=== PATIENT | female | born 1985 | race Caucasian/White ===

== ENCOUNTER → 2020-06-28 | Outpatient (CLI) | payer OTHER ==
--- NOTE | 2020-06-28 14:19 | REP ---
INDICATION: N63.20 LEFT BREAST LUMP. COMPARISON: None TECHNIQUE: Real-time sonographic evaluation of left breast performed. FINDINGS: At the site of the reported palpable abnormality in left breast at 11 o'clock no cystic or solid nodule is seen. IMPRESSION: BIRADS/ACR category 1 negative left breast ultrasound. No cystic or solid nodule at the site of the reported palpable abnormality left breast. RECOMMENDATION: No mammogram was performed as the patient just recently terminated breast feeding, and for adequate mammographic evaluation she should be 3 months from the termination of breast feeding. Recommend clinical correlation and follow-up of the palpable abnormality. If the palpable abnormality persists then I would recommend a 6 month follow-up mammogram and ultrasound left breast. <Electronically signed by Naveen Quiñones > 06/28/20 [id number]
== END ==
LOC: M WHC 12:57
PROVIDERS: ATTEND Advanced Practice Midwife
DX: R92.8 Other abnormal and inconclusive findings on diagnostic imaging of breast (principal)

== ENCOUNTER → 2020-11-19 | Outpatient (REF) | payer OTHER ==
[~2020-11-19] MED LIST: MULTTAB20 PO; SERT50TA29 PO
== END ==
LOC: M PLALAB 10:45
PROVIDERS: ATTEND Advanced Practice Midwife
DX: O26.851 Spotting complicating pregnancy, first trimester (principal)
CPT/HCPCS: 36415; 84702; G0463

== ENCOUNTER 2020-11-20 14:11 | Observation (INO) | payer OTHER ==
[~2020-11-20] VITALS: Ht 162.6 cm; Wt 99.8 kg
[2020-11-20] MEDS ORDERED: MULTTAB20 PO (14:18)
[2020-11-20] MEDS ORDERED: SERT50TA29 PO (14:18)
[2020-11-20] MEDS ORDERED: NS 1,000 ML IV ONE ×2 (14:50→16:15)
[2020-11-20 15:15] LABS: BASO # 0.1 10^3/uL (0.0-0.2); BASO % 0.4 % (0.0-1.0); EOS # 0.3 10^3/uL (0.0-0.5); EOS % 2.5 % (0.0-3.0); HEMATOCRIT 39.1 % (36.0-47.0); HEMOGLOBIN 13.1 g/dl (12.0-15.5); LYMPH # 3.5 10^3/uL (1.5-5.0); MEAN CORPUSCULAR HEMOGLOBIN 29.2 pg (27.0-33.0); MEAN CORPUSCULAR HGB CONC 33.5 g/dl (32.0-36.5); MEAN CORPUSCULAR VOLUME 87.1 fl (80.0-96.0); MONO # 0.8 10^3/uL (0.0-0.8); MONO % 5.8 % (2.0-8.0); NEUTROPHILS # 8.7 10^3/uL (1.5-8.5); PLATELET COUNT, AUTOMATED 385 10^3/uL (150-450); RED BLOOD COUNT 4.49 10^6/uL (4.00-5.40); WHITE BLOOD COUNT 13.4 10^3/uL (4.0-10.0)
[2020-11-20 15:52] LABS: OSMOLALITY SERUM 282 MOSM/KG (275-295)
[2020-11-20 15:54] LABS: BLOOD UREA NITROGEN 12 MG/DL (7-18); CALCIUM LEVEL 8.9 MG/DL (8.5-10.1); CARBON DIOXIDE LEVEL 23 MEQ/L (21-32); CHLORIDE LEVEL 107 MEQ/L (98-107); CREATININE FOR GFR 0.71 MG/DL (0.55-1.30); GLOMERULAR FILTRATION RATE > 60.0 (>60); GLUCOSE, FASTING 120 MG/DL (70-100); HCG, SERUM QUANTITATIVE 2366 MIU/ML; POTASSIUM SERUM 3.6 MEQ/L (3.5-5.1); SODIUM LEVEL 139 MEQ/L (136-145)
[2020-11-20 16:25] LABS: ACETAMINOPHEN LEVEL < 2.0 UG/ML (10.0-30.0); ALBUMIN 3.4 GM/DL (3.2-5.2); ALT/SGPT 21 U/L (12-78); BILIRUBIN,DIRECT 0.1 MG/DL (0.0-0.2); BILIRUBIN,TOTAL 0.5 MG/DL (0.2-1.0); ETHYL ALCOHOL (ETHANOL) < 0.003 % (0.000-0.010); SALICYLATE LEVEL < 1.7 MG/DL (5.0-30.0); TOTAL PROTEIN 6.4 GM/DL (6.4-8.2)
--- NOTE | 2020-11-20 17:15 | REP ---
INDICATION: miscarriage complete. COMPARISON: None. TECHNIQUE: Transabdominal and transvaginal scanning are included. FINDINGS: Uterus is mildly prominent in size but empty. Its dimensions are 9.6 x 4.9 x 6.3 cm. A 1.8 cm endometrium is seen. No evidence of intrauterine gestational sac. No free fluid is noted in the cul-de-sac. Normal ovaries are observed bilaterally. Right ovarian dimensions are 3.0 x 1.4 x 2.2 cm. The left ovary measures 2.7 x 1.9 x 1.8 cm. There is a small quantity of endocervical fluid. IMPRESSION: Mildly enlarged empty uterus. There is a small quantity of endocervical fluid. No other evidence of products of conception. Normal ovaries bilaterally. No free fluid or adnexal mass seen. <Electronically signed by Luis Singh > 11/20/20 [id number]
[2020-11-20 18:24] LABS: AMPHETAMINES LEVEL URINE NEGATIVE (NEGATIVE); BARBITURATES URINE NEGATIVE (NEGATIVE); BENZODIAZEPINES URINE NEGATIVE (NEGATIVE); CANNABINOIDS URINE NEGATIVE (NEGATIVE); COCAINE METABOLITE URINE NEGATIVE (NEGATIVE); METHADONE URINE NEGATIVE (NEGATIVE); OPIATES URINE NEGATIVE (NEGATIVE); PHENCYCLIDINE URINE NEGATIVE (NEGATIVE)
[2020-11-20 18:39] LABS: HEMATOCRIT 33.5 % (36.0-47.0); HEMOGLOBIN 11.4 g/dl (12.0-15.5); MEAN CORPUSCULAR HEMOGLOBIN 30.5 pg (27.0-33.0); MEAN CORPUSCULAR VOLUME 89.6 fl (80.0-96.0); RED BLOOD COUNT 3.74 10^6/uL (4.00-5.40); WHITE BLOOD COUNT 10.6 10^3/uL (4.0-10.0)
[2020-11-20 18:49] LABS: PLATELET COUNT, AUTOMATED 258 10^3/uL (150-450)
[2020-11-20] MEDS ORDERED: METHYLERGONOVINE MALEATE 0.2 MG/ML VIAL (J2210) IM STA (19:05)
[2020-11-20] MEDS ORDERED: NS 500 ML IV ONE (19:25)
--- NOTE | 2020-11-20 20:24 | ECGEPIP ---
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
[2020-11-20 20:40] VITALS: BP 131/69
[2020-11-20 20:55] VITALS: BP 113/64
[2020-11-20 21:45] VITALS: BP 111/63
[2020-11-20 22:30] VITALS: BP 106/58
[2020-11-20 23:16] VITALS: BP 107/69
[2020-11-20 23:53] VITALS: BP 107/69
[2020-11-21] VITALS (9 sets, daily range): BP systolic 80–110; BP diastolic 50–67
[2020-11-21] MEDS ORDERED: ACETAMINOPHEN 500 MG TAB PO PRN
[2020-11-21] MEDS: LR 1,000 ML IV SCH ×2 (00:38→09:44)
[2020-11-21] MEDS: METHYLERGONOVINE MALEATE 0.2 MG TAB PO SCH ×5 (00:38→15:47)
[2020-11-21] MEDS ORDERED: LR 500 ML IV ONE (02:05)
[2020-11-21 02:35] LABS: HEMATOCRIT 32.1 % (36.0-47.0); HEMOGLOBIN 10.5 g/dl (12.0-15.5); MEAN CORPUSCULAR HEMOGLOBIN 29.4 pg (27.0-33.0); MEAN CORPUSCULAR HGB CONC 32.7 g/dl (32.0-36.5); MEAN CORPUSCULAR VOLUME 89.9 fl (80.0-96.0); PLATELET COUNT, AUTOMATED 228 10^3/uL (150-450); RED BLOOD COUNT 3.57 10^6/uL (4.00-5.40); WHITE BLOOD COUNT 9.4 10^3/uL (4.0-10.0)
[2020-11-21 11:54] LABS: HEMATOCRIT 28.2 % (36.0-47.0); HEMOGLOBIN 9.3 g/dl (12.0-15.5); MEAN CORPUSCULAR HEMOGLOBIN 29.8 pg (27.0-33.0); MEAN CORPUSCULAR VOLUME 90.4 fl (80.0-96.0); PLATELET COUNT, AUTOMATED 235 10^3/uL (150-450); RED BLOOD COUNT 3.12 10^6/uL (4.00-5.40); WHITE BLOOD COUNT 7.8 10^3/uL (4.0-10.0)
[2020-11-22 15:36] LABS: PROLACTIN 23.8 NG/ML
--- NOTE | 2020-12-12 17:05 | IPNPDOC ---
Text Note Date of Service The patient was seen on 11/20/20. NOTE History and Physical : HPI: This patient is a 35-year-old 6 para 5 who presents to the emergency department process of spontaneous . She reports started bleeding earlier on day of presentation going through a pad approximately every 2 hours. Upon presentation she had a transabdominal ultrasound showing an empty uterus had a moderate amount of blood flow. Upon ambulation patient became symptomatic with orthostatic changes. Decision was made to admit overnight for observation initiate blood transfusion. PMHx: none PSHx: none OB History: 5 term Meds: PNv Allergies: none SH: Denies alcohol tobacco or drug use PE: vss, AF Gen: well appearing, NAD CVS: rrr Lung: CTAB ABD: soft, nttp A/P: 35-year-old 6 para 5 status post spontaneous with symptomatic anemia Plan is to transfuse 2 units packed red blood cells. Once stable, she should follow up in 2 weeks as an outpatient MD MAURY Mitchell KENYA MD. December 12, 2020 17:05
== END 2020-11-21 16:34 | disposition home or self-care (01) ==
LOC: M ED 14:11 → M ED INP 14:12 → ENRESERV 19:59 → M MSPAV 23:17
PROVIDERS: ADMIT Obstetrics & Gynecology; ATTEND Obstetrics & Gynecology
DX: O03.9 Complete or unspecified spontaneous abortion without complication (principal); D62 Acute posthemorrhagic anemia; Z79.899 Other long term (current) drug therapy
CPT/HCPCS: 36415; 36430; 76801; 76817; 80048; 80076; 80143; 80307; 81001; 82077; 83605; 83930; 84146; 84443; 84702; 85025; 85027; 86850; 86900; 86901; 86920; 87086; 87798; 93005; 93041; 93976; 94760; 96360; 96361; 96372; 99285; J2210; P9016

== ENCOUNTER → 2021-03-11 | Outpatient (CLI) | payer OTHER ==
[2021-03-11 15:48] LABS: HEMOGLOBIN 13.2 g/dl (12.0-15.5); MEAN CORPUSCULAR HGB CONC 32.2 g/dl (32.0-36.5); MEAN CORPUSCULAR VOLUME 83.8 fl (80.0-96.0); PLATELET COUNT, AUTOMATED 278 10^3/uL (150-450); RED BLOOD COUNT 4.89 10^6/uL (4.00-5.40); WHITE BLOOD COUNT 8.3 10^3/uL (4.0-10.0)
[2021-03-11 16:56] LABS: HEPATITIS C VIRUS ABY INDEX 0.1 INDEX (<0.8); HIV 1&2 SCREEN CENTAUR NEGATIVE (NEGATIVE)
[2021-03-11 17:12] LABS: GC DNA AMPLIFICATION NEGATIVE (NEGATIVE)
== END ==
LOC: M PLALAB 13:38
PROVIDERS: ATTEND Obstetrics & Gynecology
DX: Z34.91 Encounter for supervision of normal pregnancy, unspecified, first trimester (principal)
CPT/HCPCS: 36415; 85027; 86762; 86780; 86803; 86850; 86900; 86901; 87086; 87340; 87389; 87491; 87591; G0463

== ENCOUNTER → 2021-05-18 | Outpatient (CLI) | payer OTHER ==
--- NOTE | 2021-05-18 09:00 | REP ---
INDICATION: ANATOMY COMPARISON: 11/20/2020 TECHNIQUE: Transabdominal obstetrical ultrasound with color Doppler evaluation. FINDINGS: Examination demonstrates a single live intrauterine in cephalic presentation. motion is identified by technologist. Placenta is noted posterior and grade 0 without evidence for placenta previa or abruption. Amniotic fluid volume is normal. Cervix measures 4.5 cm in length and appears closed.. Selected gestational age: 21 weeks 5 days with JEN 09/23/2021. Gestational age by current measurements 21 weeks 5 days with JEN 09/23/2021. FHR equals 152 beats per minute. BPD: 5.0 cm at 21 weeks 2 days HC: 19.1 cm at 21 weeks 3 days AC: 16.1 cm at 21 weeks 2 days FL: 3.8 cm at 22 weeks 2 days HL: 3.5 cm at 22 weeks 1 day HC/AC: 1.18 Estimated weight 441 grams (45thpercentile). Anatomical assessment demonstrates normal structures including cranium, choroid plexus, cavum, cerebellum/posterior fossa, facial features, lungs, diaphragm, stomach, cord insertion/three-vessel cord, kidneys/bladder, spine, and extremities. IMPRESSION: Single live intrauterine in cephalic presentation demonstrating appropriate estimated weight and growth. Limited evaluation of the heart/ventricular outflow tracts. Remainder of the anatomical assessment is complete and normal. <Electronically signed by Akira Hardy > 05/18/21 [id number]
== END ==
LOC: M WHC 08:01
PROVIDERS: ATTEND Obstetrics & Gynecology
DX: Z34.82 Encounter for supervision of other normal pregnancy, second trimester (principal); Z3A.11 11 weeks gestation of pregnancy

== ENCOUNTER → 2021-06-02 | Outpatient (CLI) | payer OTHER ==
--- NOTE | 2021-06-02 16:37 | REP ---
INDICATION: PREG 23+ WKS F/U ANATOMY. COMPARISON: Obstetrical ultrasound, 05/18/2021 TECHNIQUE: Ultrasound evaluation of the gravid uterus was performed. FINDINGS: 7, Para 5 LMP 12/16/2020 = 24 weeks 0 days, JEN(LMP) = 09/22/2021 Expected GA/1st sono = 23 weeks 6 days, JEN (expected) = 09/23/2021 Today's sono findings = 24 weeks 4 days, JEN (today's sono) = 09/18/2021 Number: 1 Position: Cephalic Heart Rate: 149 BPM Placental Position: Posterior Amniotic Fluid Volume: Normal Cervix Length 4.6 cm. MEASUREMENTS: BPD: 5.9 cm, consistent with 24 weeks 1 day, mean gestational age. HC: 23.0 cm, consistent with 25 weeks 0 days, mean gestational age. AC: 19.5 cm, consistent with 24 weeks 1 day, mean gestational age. FL: 4.2 cm, consistent with 23 weeks 6 days, mean gestational age. Estimated Weight: 670 grams 54 percentile The following structures are visualized on today's exam or were seen on previous exam and are unremarkable: Cranium, cavum, cerebellum, posterior fossa-cisterna magna, choroid plexus, midline falx, lateral ventricles, orbits, face-profile, face-lips/mouth, neck, 4-chamber heart, RVOT, diaphragm, stomach, kidneys, bladder, abdominal wall, cord insertion, umbilical arteries, 3-vessel cord, color Doppler, spine and upper and lower extremities. Note the LVOT was suboptimally visualized. IMPRESSION: 1. Single living intrauterine of 24 weeks 4 days, mean gestational age. The estimated date of delivery is 09/18/2021. 2. There are no anomalies detected. The LVOT was suboptimally visualized. <Electronically signed by Serge Tsai > 06/02/21 [id number]
== END ==
LOC: M RAD 14:36
PROVIDERS: ATTEND Advanced Practice Midwife
DX: Z36.2 Encounter for other antenatal screening follow-up (principal); Z3A.24 24 weeks gestation of pregnancy

== ENCOUNTER → 2021-06-28 | Outpatient (CLI) | payer OTHER ==
[2021-06-28 13:50] LABS: HEMATOCRIT 36.4 % (36.0-47.0); HEMOGLOBIN 12.3 g/dl (12.0-15.5); MEAN CORPUSCULAR HEMOGLOBIN 29.8 pg (27.0-33.0); MEAN CORPUSCULAR HGB CONC 33.8 g/dl (32.0-36.5); MEAN CORPUSCULAR VOLUME 88.1 fl (80.0-96.0); PLATELET COUNT, AUTOMATED 258 10^3/uL (150-450); RED BLOOD COUNT 4.13 10^6/uL (4.00-5.40); WHITE BLOOD COUNT 8.8 10^3/uL (4.0-10.0)
[2021-06-28 15:26] LABS: GC DNA AMPLIFICATION NEGATIVE (NEGATIVE)
== END ==
LOC: M PLALAB 09:39
PROVIDERS: ATTEND Obstetrics & Gynecology
DX: Z34.92 Encounter for supervision of normal pregnancy, unspecified, second trimester (principal)

== ENCOUNTER → 2021-06-28 | Outpatient (CLI) | payer OTHER | LOC: M PLALAB 09:42 | PROVIDERS: ATTEND Advanced Practice Midwife | DX: Z13.88 Encounter for screening for disorder due to exposure to contaminants (principal); Z3A.26 26 weeks gestation of pregnancy ==

== ENCOUNTER → 2021-08-29 | Outpatient (REF) | payer OTHER | LOC: M SFHCWAGY 12:34 | PROVIDERS: ATTEND Advanced Practice Midwife | DX: Z36.85 Encounter for antenatal screening for Streptococcus B (principal); Z3A.00 Weeks of gestation of pregnancy not specified ==

== ENCOUNTER 2021-09-17 15:11 | Outpatient (CLI) | payer OTHER ==
[~2021-09-17] VITALS: Ht 162.6 cm; Wt 114.3 kg
[2021-09-17 15:37] VITALS: BP 124/81
[2021-09-17] MEDS ORDERED: TUMS500C PO (16:05)
[2021-09-17] MEDS ORDERED: HOME MED LIST COMPLETE! XX SCH (16:05)
[2021-09-17 17:33] VITALS: BP 137/82
== END 2021-09-17 17:45 | disposition home or self-care (01) ==
LOC: M LDO 15:11
PROVIDERS: ATTEND Specialist
DX: O60.03 Preterm labor without delivery, third trimester (principal); O09.513 Supervision of elderly primigravida, third trimester; Z3A.39 39 weeks gestation of pregnancy
CPT/HCPCS: 59025; G0378; G0463

== ENCOUNTER 2021-09-23 08:55 | Inpatient (IN) | payer OTHER ==
[~2021-09-23] VITALS: Ht 162.6 cm; Wt 114.8 kg
[2021-09-23] VITALS (13 sets, daily range): BP systolic 96–132; BP diastolic 55–67
[~2021-09-23 08:55] MED LIST changes: +TUMS500C PO
[2021-09-23] MEDS ORDERED: LACTATED RINGER'S 1000 ML IV STA (09:22)
[2021-09-23] MEDS ORDERED: OXYTOCIN DRIP 30 UNITS in IV 1 EA IV PRN (09:25)
[2021-09-23] MEDS ORDERED: METHYLERGONOVINE MALEATE 0.2 MG/ML VIAL (J2210) IM PRN (09:25)
[2021-09-23] MEDS ORDERED: LIDOCAINE 1% MDV 20ML VIAL INFIL PRN (09:25)
[2021-09-23 09:56] LABS: HEMATOCRIT 38.1 % (36.0-47.0); MEAN CORPUSCULAR HEMOGLOBIN 28.3 pg (27.0-33.0); MEAN CORPUSCULAR HGB CONC 34.1 g/dl (32.0-36.5); PLATELET COUNT, AUTOMATED 248 10^3/uL (150-450); RED BLOOD COUNT 4.59 10^6/uL (4.00-5.40); WHITE BLOOD COUNT 8.1 10^3/uL (4.0-10.0)
[2021-09-23] MEDS: LR 1,000 ML IV SCH ×2 (09:57→22:43)
[2021-09-23] MEDS ORDERED: HOME MED LIST COMPLETE! XX SCH (10:10)
[2021-09-23] MEDS ORDERED: OXYTOCIN DRIP 30 UNITS in IV 1 EA IV SCH (11:00)
[2021-09-24] MEDS ORDERED: DIBUCAINE 1% OINTMENT 30GM TOP PRN (00:45)
[2021-09-24] MEDS ORDERED: CALCIUM CARBONATE 500 MG CHEW U/D PO PRN (00:45)
[2021-09-24] MEDS ORDERED: MEASLES,MUMPS,RUBELLA VACCINE INJ (MMR-II) (90707) SC SCH (00:45)
[2021-09-24] MEDS ORDERED: ACETAMINOPHEN 500 MG TAB PO PRN (00:45)
[2021-09-24] MEDS ORDERED: METHYLERGONOVINE MALEATE 0.2 MG TAB PO PRN (00:45)
[2021-09-24] MEDS ORDERED: DOCUSATE SODIUM 100MG CAPSULE PO PRN (00:45)
[2021-09-24] MEDS ORDERED: RHOGAM 300 MCG (1500 IU) INJ (J2790) IM SCH (00:45)
[2021-09-24 01:14] VITALS: BP 94/53
[2021-09-24 01:28] VITALS: BP 105/56
[2021-09-24 01:43] VITALS: BP 109/59
[2021-09-24] MEDS: IBUPROFEN 600MG TAB PO PRN ×2 (05:44→21:50)
[2021-09-24] MEDS: SERTRALINE HCL 50 MG TAB PO SCH ×2 (05:44→21:00)
[2021-09-24 05:51] VITALS: BP 114/64
[2021-09-24] MEDS: PRENATAL VITAMINS CHEWABLE TABLET PO SCH (08:16)
[2021-09-24 18:04] VITALS: BP 132/77
[2021-09-25 06:00] VITALS: BP 138/85
[2021-09-25] MEDS ORDERED: IBUP-1022 PO (08:28)
[2021-09-25] MEDS ORDERED: COLA100C5 PO (08:28)
[2021-09-25] MEDS ORDERED: ACET-683 PO (08:28)
[2021-09-25] MEDS: PRENATAL VITAMINS CHEWABLE TABLET PO SCH (09:00)
== END 2021-09-25 12:55 | disposition home or self-care (01) | DRG 807 ==
LOC: M LDI 08:55 → M OBS 09-24 02:20
PROVIDERS: ADMIT Advanced Practice Midwife; ATTEND Obstetrics & Gynecology
PROC: 3E033VJ Introduction of Other Hormone into Peripheral Vein, Percutaneous Approach (ICD-10-PCS; 2021-09-23)
PROC: 10E0XZZ Delivery of Products of Conception, External Approach (ICD-10-PCS; principal; 2021-09-24)
DX: O48.0 Post-term pregnancy (principal); Z37.0 Single live birth; Z3A.40 40 weeks gestation of pregnancy

== ENCOUNTER → 2022-05-12 | Outpatient (CLI) | payer OTHER ==
[~2022-05-12] MED LIST changes: +ACET-683 PO; +COLA100C5 PO; +IBUP-1022 PO
[2022-05-12 10:24] LABS: BASO % 0.4 % (0.0-1.0); EOS # 0.2 10^3/uL (0.0-0.5); EOS % 2.8 % (0.0-3.0); HEMATOCRIT 44.6 % (36.0-47.0); HEMOGLOBIN 14.2 g/dl (12.0-15.5); LYMPH # 2.3 10^3/uL (1.5-5.0); LYMPH % 31.8 % (24.0-44.0); MEAN CORPUSCULAR HEMOGLOBIN 28.9 pg (27.0-33.0); MEAN CORPUSCULAR HGB CONC 31.8 g/dl (32.0-36.5); MEAN CORPUSCULAR VOLUME 90.8 fl (80.0-96.0); MONO # 0.4 10^3/uL (0.0-0.8); MONO % 6.2 % (2.0-8.0); NEUTROPHILS # 4.1 10^3/uL (1.5-8.5); NEUTROPHILS % 58.5 % (36.0-66.0); PLATELET COUNT, AUTOMATED 290 10^3/uL (150-450); RED BLOOD COUNT 4.91 10^6/uL (4.00-5.40); WHITE BLOOD COUNT 7.1 10^3/uL (4.0-10.0)
[2022-05-12 10:46] LABS: HEMOGLOBIN A1c 5.1 %
[2022-05-12 11:30] LABS: ALBUMIN 3.9 GM/DL (3.2-5.2); ALT/SGPT 24 U/L (12-78); BILIRUBIN,TOTAL 0.5 MG/DL (0.2-1.0); BLOOD UREA NITROGEN 20 MG/DL (7-18); CARBON DIOXIDE LEVEL 29 MEQ/L (21-32); CHLORIDE LEVEL 105 MEQ/L (98-107); CHOLESTEROL LEVEL 193 MG/DL (<200); CHOLESTEROL RISK RATIO 3.327 (<5); CREATININE FOR GFR 0.75 MG/DL (0.55-1.30); FREE T4 0.82 NG/DL (0.76-1.46); GLOMERULAR FILTRATION RATE > 60.0 (>60); GLUCOSE, FASTING 81 MG/DL (70-100); HDL CHOLESTEROL 58 MG/DL (>40); LDL CHOLESTEROL 125 MG/DL (<100); NON-HDL-C 135 MG/DL; POTASSIUM SERUM 5.1 MEQ/L (3.5-5.1); SODIUM LEVEL 139 MEQ/L (136-145); TOTAL PROTEIN 7.5 GM/DL (6.4-8.2); TRIGLYCERIDES LEVEL 48 MG/DL (<150)
== END ==
LOC: M WUC 08:24
PROVIDERS: ATTEND Physician Assistant
DX: Z13.29 Encounter for screening for other suspected endocrine disorder (principal); Z13.220 Encounter for screening for lipoid disorders

== ENCOUNTER → 2022-08-30 | Outpatient (REF) | payer OTHER | LOC: M LAB REF 16:57 | PROVIDERS: ATTEND Family Medicine | DX: J02.9 Acute pharyngitis, unspecified (principal) ==